=== PATIENT | female | born 2005 | race Caucasian/White ===

== ENCOUNTER 2023-07-07 15:33 | Outpatient (AMB) | payer OTHER, SELFPAY ==
--- NOTE | 2023-07-07 15:46 | MHC.PC.OV ---
Vital Signs 07/07/23 15:50 Height 5 ft 5.39 in Weight 205 lb 4 oz BMI 33.7 BP 123/81 Blood Pressure Location Rt brachial Position Sitting Respiration 16 Pulse 79 Pulse Source Pulse Oximeter Temp 97.9 F Temp Source Temporal Artery Scan Pulse Oximetry (%) 98 Oxygen Delivery Method Room Air Intake Visit Reasons: louie from pediatrics Intake Note: New patient visit Shuttle Fixer Required: No Is last menstrual period known: Yes Last menstrual period: 07/06/23 Patient : No Allergies Seasonal Allergies Allergy (Intermediate, Verified 07/07/23 16:00) Sneezing, watery eye Medication List - Last Reconciled 07/07/23 by PAZ Maravilla-BC albuterol sulfate 90 mcg/actuation 2 puffs inhalation Q6H PRN Tobacco use date assessed: 07/07/23 Dental Screening Dental Screen Date: 07/07/23 Did you have a dental visit in the last 12 months?: No Did you have a dental problem in the last 6 months where you did not have access to dental care?: No Was dental information given to patient?: Patient has dentist HPI HPI Comments History of Present Illness Details 17-year-old female with HS, elevated fasting glucose, MDD, LAURIE, mild intermittent asthma Surgical hx: none Specialist: Counselor - no longer active, needs new referral Here today for CPE HS - getting some, more in vaginal area. Only occasionally in the axilla. MDD/LAURIE - was on meds in the past, stopped as didnt think she needed any more Asthma - PRN RUBEN Will be started a SIGN OUT CLERK program at [facility] [place] Starts Aug 09 2023 Needs titers drawn Reports normal periods. Sexually active with women. Denies concern for STDs. Reports self-breast exams. [facility] Medical History (Updated 07/07/23 @ 17:05 by PAZ Maravilla-JUANJO) Hidradenitis axillaris Diarrhea Surgical History No pertinent past surgical history Family History (Updated 07/07/23 @ 15:55 by Maria M Carrillo CMA) Mother Diabetes Father No problems noted. Maternal Grandmother Diabetes Paternal Uncle Substance abuse Other Mental disorder Social History Household Members: Family Housing: Apartment Patient Tobacco Use Status: Never used Tobacco e-Cigarette/Vaping Use: Former Use service: No Current occupational status: employed and student Current occupation: [employer] Current occupational exposures/hazards: No Cognitive needs: No Hearing needs: No Vision needs: No Female Reproductive History Menstrual Date of last menstrual period: 07/06/23 Questionnaire PHQ-9 Over the last 2 weeks, how often have you been bothered by any of the following problems? 1. Little interest or pleasure in doing things: not at all 2. Feeling down, depressed, or hopeless: several days 3. Trouble falling or staying asleep, or sleeping too much: not at all 4. Feeling tired or having little energy: several days 5. Poor appetite or overeating: not at all 6. Feeling bad about yourself - or that you are a failure or have let yourself or your family down: several days 7. Trouble concentrating on things, such as reading the newspaper or watching television: not at all 8. Moving or speaking so slowly that other people could have noticed. Or the opposite - being so fidgety or restless that you have been moving around a lot more than usual: not at all 9. Thoughts that you would be better off or of hurting yourself in some way: not at all Total score: 3 Depression Screening Interpretation: Positive Depression Screening Follow-up: Existing condition and Community Mental Health Worker F/U Depression Screening Done: Yes 98935 - PHQ-9 Billing: Yes Source: Developed by Drs. Daniel Mcconnell, Pascale Gómez, James Cheatham and colleagues, with an educational moody from [email or web address] Thrive Questionnaire Date Thrive assessed: 07/07/23 I am a: Patient What is your living situation today?: I have a steady place to live Within the past 12 months, did the food you bought not last and you didn't have the money to get more?: Never true Within the past 12 months, did you worry whether your food would run out before you got money to buy more?: Never true Do you have trouble paying for medicines?: No Do you have trouble getting transportation to medical appointments?: No Do you have trouble paying your heating and electricity bill?: No Do you have trouble taking care of your child, family member or friend?: No Do you have trouble with day-to-day activities such as bathing, preparing meals, shopping, managing finances, etc.?: No Are you currently unemployed and looking for a job?: No Are you interested in more education?: No Please select the resources that you would like help with: None Currently or been in a relationship where the following occur: no concerns reported THRIVE Score: 0 AUDIT C Alcohol Use Questionnaire (AUDIT-C) 1. How often do you have a drink containing alcohol?: Never 3. How often do you have six or more drinks on one occasion?: Never Total Score: 0 Score Reviewed/Action Taken: Yes LAURIE-7 AMB Questionnaire LAURIE-7 Date LAURIE - 7 assessed: 07/07/23 Feeling nervous, anxious, or on edge: 1 = Several days Not being able to stop or control worryin = Not at all Worrying too much about different things: 0 = Not at all Trouble relaxin = Not at all Being so restless that it is hard to sit still: 0 = Not at all Becoming easily annoyed or irritable: 1 = Several days Feeling afraid as if something awful might happen: 0 = Not at all Total LAURIE-7 score (0-4 normal; 5-9 mild; 10-14 moderate; 15-21 severe): 2 Source: Developed by Drs. Daniel Mcconnell, Pascale Gómez, James Cheatham and colleagues, with an educational moody from [email or web address]. LAURIE-7 Assessment Billing LAURIE-7 Assessment Tool: LAURIE-7 Assessment 99272 ACT Questionnaire In the past 4 weeks, how much of the time did your asthma keep you from getting as much done at work, school or at home?: None of the time During the past 4 weeks, how often have you had shortness of breath?: 1-2 times a week During the past 4 weeks, how often did your asthma symptoms wake you up at night or earlier than usual in the morning?: Not at all During the past 4 weeks, how often have you had to use your rescue inhaler or nebulizer medication?: 1-2 times a week How would you rate your asthma control during the past 4 weeks?: Completely controlled ACT Interpretation: Positive Score: 21 Review of Systems Const Details: Constitutional: Denies fever. Skin: Denies rash. Eye: Denies eye pain. ENMT: Denies sore throat and nasal congestion. Respiratory: Denies shortness of breath and cough. Gastrointestinal: Denies nausea, vomiting or abdominal pain. Cardiovascular: Denies chest pain and syncope. Genitourinary: Denies dysuria. Musculoskeletal: Denies back pain and extremity pain. Neurologic: Denies headaches, confusion, and weakness. Psychiatric: Denies suicidal thoughts and substance abuse. Allergy/ Immunologic: Denies impaired immunity. Physical exam (Primary Care) Vital Signs: Last Vital Signs Temp 97.9 F 07/07/23 15:50 Pulse 9 L 07/07/23 15:50 Resp 16 07/07/23 15:50 BP 123/81 07/07/23 15:50 Pulse Ox 98 07/07/23 15:50 Oxygen Delivery Method Room Air 07/07/23 15:50 BMI result Body Mass Index 33.7 BMI Assessment/Plan discussion: High BMI High, discussed plan: lifestyle Tobacco/Smoking Status: Tobacco use Status Tobacco use date assessed 07/07/23 07/07/23 15:50 Patient Tobacco Use Status Never used Tobacco 07/07/23 15:50 e-Cigarette/Vaping Use Former Use 07/07/23 15:50 PHQ-9: PHQ-9 Score PHQ-9: Total score 3 07/07/23 15:57 Depression Screening Interpretation: Positive Depression Screening Follow-up: Existing condition and Community Mental Health Worker F/U Thrive Assessment: Date of Thrive Assessment Date Thrive assessed 07/07/23 07/07/23 15:57 Currently or been in a relationship where the following occur: no concerns reported Const Other: General: Well developed, well nourished, in no acute distress. Appears stated age. Head: Normocephalic, atraumatic. Eyes: Pupils are equal, round and reactive to light and accommodation. Conjunctivae are clear. Vision grossly normal. Ears: TMs clear AU, EACS WNL Nose: Patent, without discharge. Mouth: There are no ulcers or lesions noted. No inflammation, no post nasal drip, no plaques nor exudates. Neck: Supple, no adenopathy or thyromegaly. Lungs: Clear to auscultation bilaterally. No rales, rhonchi or wheeze noted. Good air flow in all watson. Heart: Regular rate and rhythm. No murmurs, click, rubs or gallops are noted. Abdomen: Bowel sounds present in all quadrants. The abdomen is soft, nontender, with no masses or organomegaly noted. No hernias are noted. Musculoskeletal: Joints are nontender, without swelling, redness, or effusions. Range of motion is observed to be normal. Pulses: Peripheral pulses are equal and palpable bilaterally. Extremities: No clubbing, cyanosis nor edema is noted. Neurologic: Gait and station normal. Cranial Nerves 2-12 intact. Motor strength grossly symmetrical and intact. No sensory loss. Balance normal. Skin: No rashes, ulcers, or lesions noted. Turgor is good. Skin color is good. Hair and nails are without abnormalities. Psych: Normal eye contact, affect and mood appropriate, and normal interactions. Patient is alert and appropriate to context. Assessment and Plan Assessment & Plan (1) Adult general medical exam: Code(s): Z00.00 - Encounter for general adult medical examination without abnormal findings (2) MDD (major depressive disorder), recurrent episode: Comment: On medications in the past. Feels her symptoms are well controlled. Referred to counseling. Code(s): F33.9 - Major depressive disorder, recurrent, unspecified Qualifiers: Major depression episode severity: mild Qualified Code(s): F33.0 - Major depressive disorder, recurrent, mild (3) LAURIE (generalized anxiety disorder): Comment: See MDD Code(s): F41.1 - Generalized anxiety disorder (4) Nearsightedness: Comment: Refer to ophthalmology Code(s): H52.10 - Myopia, unspecified eye (5) Class 1 obesity with body mass index (BMI) of 33.0 to 33.9 in adult: Comment: Lifestyle mods encouraged Code(s): E66.9 - Obesity, unspecified; Z68.33 - Body mass index [BMI] 33.0-33.9, adult Qualifiers: Obesity type: due to excess calories Serious obesity comorbidity presence: without serious comorbidity Qualified Code(s): E66.09 - Other obesity due to excess calories; Z68.33 - Body mass index [BMI] 33.0-33.9, adult (6) Hidradenitis suppurativa: Comment: With history of abscess requiring I&D in August of 2020 We will prescribe Hibiclens to be used daily in the shower. Offered and declined a referral to dermatology at this time. She has no concerns for abscesses. Code(s): L73.2 - Hidradenitis suppurativa (7) Mild intermittent asthma in adult without complication: Comment: Well controlled with sparing use of p.r.n. Ruben. Continue Code(s): J45.20 - Mild intermittent asthma, uncomplicated (8) IFG (impaired fasting glucose): Comment: Noted on previous labs. We will update labs to include an HGB A1c. Code(s): R73.01 - Impaired fasting glucose Plan: Titers ordered for her. She has sent me her school paperwork via the portal. Once all of her labs are back I will complete the paperwork and returned this to her. Orders: Orders LDL Cholesterol Direct Today Z00.00 - Encounter for general adult medical examination without abnormal findings Hemoglobin A1c Today Z00.00 - Encounter for general adult medical examination without abnormal findings TSH reflex Free T4 Today Z00.00 - Encounter for general adult medical examination without abnormal findings T Spot TB Today Z00.00 - Encounter for general adult medical examination without abnormal findings Varicella IgG Antibody Today Z00.00 - Encounter for general adult medical examination without abnormal findings MMR IgG Measles Mumps Rubella Today Z00.00 - Encounter for general adult medical examination without abnormal findings Hepatitis B Surface Antigen Today Z00.00 - Encounter for general adult medical examination without abnormal findings Comprehensive Met. Panel Today Z00.00 - Encounter for general adult medical examination without abnormal findings Vitamin D 1,25 dihydroxy Today Z00.00 - Encounter for general adult medical examination without abnormal findings Referrals Counseling Referral F33.9 - Major depressive disorder, recurrent, unspecified, F41.1 - Generalized anxiety disorder Ophthalmology Referral H52.10 - Myopia, unspecified eye Medications: New chlorhexidine gluconate 4% (Hibiclens) wash body daily 1 appl topical DAILY 30 days 3,800 mL 3RF Patient Instructions: Return to office in 1 year for CPE sooner as needed. Health screenings for women ages 18 to 39 You should visit your health care provider from time to time, even if you are healthy. The purpose of these visits is to: Screen for medical issues Assess your risk for future medical problems Encourage a healthy lifestyle Update vaccinations and other preventive care services Help you get to know your provider in case of an illness Information Even if you feel fine, you should still see your provider for regular checkups. These visits can help you avoid problems in the future. For example, the only way to find out if you have high blood pressure is to have it checked regularly. High blood sugar and high cholesterol levels also may not have any symptoms in the early stages. A simple blood test can check for these conditions. There are specific times when you should see your provider or receive specific health screenings. The [place] Preventive Services Task Force publishes a list of recommended screenings. Below are screening guidelines for women ages 18 to 39. BLOOD PRESSURE SCREENING Your blood pressure should be checked at least once every 3 to 5 years if: Your blood pressure is in the normal range (top number less than 120 mm Hg and bottom number less than 80 mm Hg) You don't have risk factors for high blood pressure Ask your provider if you need your blood pressure checked more often if: The top number is 120 to 129 mm Hg or the bottom number is 70 to 79 mm Hg You have diabetes, heart disease, kidney problems, are overweight, or have certain other health conditions You have a first-degree relative with high blood pressure You are Black You had high blood pressure during a If the top number is 130 mm Hg or greater or the bottom number is 80 mm Hg or greater, this is considered stage 1 hypertension. Schedule an appointment with your provider to learn how you can reduce your blood pressure. Watch for blood pressure screenings in your area. Ask your provider if you can stop in to have your blood pressure checked. BREAST CANCER SCREENING Experts do not agree about the benefits of breast self-exams in finding breast cancer or saving lives. Talk to your provider about what is best for you. A screening mammogram is not recommended for most women under age 40. Your provider may discuss and recommend mammograms, MRI scans, or ultrasounds if you have an increased risk for breast cancer, such as: A mother or sister who had breast cancer at a young age (most often starting screening earlier than the age the close relative was diagnosed) You carry a high-risk genetic marker CERVICAL CANCER SCREENING Cervical cancer screening should start at age 21 years unless your provider advises otherwise. After the first test: Women ages 21 through 29 should have a Pap test every 3 years. Exoprts do not agree on whether HPV testing is recommended for this age group. Women ages 30 through 65 should be screened with either a Pap test every 3 years or the HPV test every 5 years or both tests every 5 years (called cotesting ). Women who have been treated for precancer (cervical dysplasia) should continue to have Pap tests for 20 years after treatment or until age 65, whichever is longer. If you have had your uterus and cervix removed (total hysterectomy), and you have not been diagnosed with cervical cancer or precancer (high grade cervical neoplasia), you do not need cervical cancer screening. CHOLESTEROL SCREENING Cholesterol screening should begin at: Age 45 for women with no known risk factors for coronary heart disease Age 20 for women with known risk factors for coronary heart disease Repeat cholesterol screening should take place: Every 5 years for women with normal cholesterol levels More often if changes occur in lifestyle (including weight gain and diet) More often if you have diabetes, heart disease, kidney problems, or certain other conditions DIABETES SCREENING You should be screened for diabetes starting at age 35 and then repeated every 3 years if you have no risk factors for diabetes. Screening may need to start earlier and be repeated more often if you have other risk factors for diabetes, such as: You have a first degree relative with diabetes. You are overweight or have obesity. You have high blood pressure, prediabetes, or a history of heart disease. Screening for diabetes should be done if you are planning to become and you are overweight and have other risk factors such as high blood pressure. DENTAL EXAM Go to the dentist once or twice every year for an exam and cleaning. Your dentist will evaluate if you need more frequent visits. EYE EXAM Have an eye exam every 5 to 10 years before age 40. If you have vision problems, have an eye exam every 2 years or more often if recommended by your provider. You should have an eye exam that includes an examination of your retina (back of your eye) at least every year if you have diabetes. IMMUNIZATIONS Commonly needed vaccines include: Flu shot: get one every year. COVID-19 vaccine: ask your provider what is best for you. Tetanus-diphtheria and acellular pertussis (Tdap) vaccine: have one at or after age 19 as one of your tetanus-diphtheria vaccines if you did not receive it as an adolescent. Tetanus-diphtheria: have a booster (or Tdap) every 10 years. Varicella vaccine: receive 2 doses if you never had chickenpox or the varicella vaccine. Hepatitis B vaccine: receive 2, 3, or 4 doses, depending on your exact circumstances. Measles, mumps, and rubella (MMR) vaccine: receive 1 to 2 doses if you are not already immune to MMR. Your provider can tell you if you are immune. Ask your provider about the human papillomavirus (HPV) vaccine if: You have not received the HPV vaccine in the past You have not completed the full vaccine series (you should catch up on this shot) Ask your provider if you should receive other immunizations if you have certain health problems that increase your risk for some diseases such as pneumonia. INFECTIOUS DISEASE SCREENING Women who are sexually active should be screened for chlamydia and gonorrhea up until age 25. Women 25 years and older should be screened for chlamydia and gonorrhea if at high risk. Screening for hepatitis C: All adults ages 18 to 79 should get a one-time test for hepatitis C. people should be screened at every . Screening for human immunodeficiency virus (HIV): All people ages 15 to 65 should get a one-time test for HIV. Depending on your lifestyle and medical history, you may also need to be screened for infections such as syphilis and HIV, as well as other infections. PHYSICAL EXAM All adults should visit their provider from time to time, even if they are healthy. The purpose of these visits is to: Screen for disease Assess your risk of future medical problems Encourage a healthy lifestyle Update your vaccinations and other preventive care services Maintain a relationship with a provider in case of an illness Your height, weight, and BMI should be checked at every exam. During your exam, your provider may ask you about: Depression and anxiety Diet and exercise Alcohol and tobacco use Safety issues, such as using seat belts, smoke detectors, and intimate partner violence Your medicines and risk for interactions SKIN SELF-EXAM Your provider may check your skin for signs of skin cancer, especially if you're at high risk, such as if you: Have had skin cancer before Have close relatives with skin cancer Have a weakened immune system OTHER SCREENING Talk with your provider about colon cancer screening if you have a strong family history of colon cancer or polyps, or if you have had inflammatory bowel disease or polyps yourself. Routine bone density screening of women under 40 is not recommended. Coding Level of Care Code Est Pt Prev Care 18-39y(97592) Diagnoses Adult general medical exam Z00.00 Mild episode of recurrent major depressive disorder F33.0 Major depression episode severity: mild LAURIE (generalized anxiety disorder) F41.1 Nearsightedness H52.10 Class 1 obesity due to excess calories without serious comorbidity with body mass index (BMI) of 33.0 to 33.9 in adult E66.09; Z68.33 Obesity type: due to excess calories Serious obesity comorbidity presence: without serious comorbidity Hidradenitis suppurativa L73.2 Mild intermittent asthma in adult without complication J45.20 IFG (impaired fasting glucose) R73.01 Additional Codes LAURIE-7 Assessment Billing - LAURIE-7 Assessment Tool: LAURIE-7 Assessment [id number] ([id number])
[2023-07-07 15:50] VITALS: BP 123/81; PULSE 79; RESP 16; TEMP 36.6; O2SAT 98; BMI 33.7
== END 2023-07-07 16:21 | disposition home or self-care (01) ==
PROVIDERS: Visit Provider Nurse Practitioner Family
DX: Z00.00 Encounter for general adult medical examination without abnormal findings (principal); F33.0 Major depressive disorder, recurrent, mild; F41.1 Generalized anxiety disorder; H52.10 Myopia, unspecified eye; E66.09 Other obesity due to excess calories; Z68.33 Body mass index [BMI] 33.0-33.9, adult; L73.2 Hidradenitis suppurativa; J45.20 Mild intermittent asthma, uncomplicated; R73.01 Impaired fasting glucose
CPT/HCPCS: 99395

== ENCOUNTER 2023-07-12 12:48 | Outpatient (REF) | payer OTHER, SELFPAY ==
[2023-07-12 15:50] LABS: Estimated Average Glucose 88 mg/dL; Hemoglobin A1c % 4.7 % (<6.0)
[2023-07-12 15:55] LABS: Alanine Aminotransferase 15 U/L (0-31); Albumin Level 4.5 g/dL (3.5-5.0); Alkaline Phosphatase 77 U/L (39-117); Anion Gap 11 (12-20); Aspartate Amino Transferase 12 U/L (5-31); Bilirubin Total 0.2 mg/dL (0.0-1.0); Blood Urea Nitrogen 10 mg/dL (9-16); Calcium 9.2 mg/dL (8.4-10.2); Carbon Dioxide 25 mmol/L (22-29); Chloride 106 mmol/L (96-108); Estimated Glomerular Filt Rate > 60; Glucose Random 98 mg/dL (60-115); Potassium 3.9 mmol/L (3.3-5.1); Sodium 138 mmol/L (135-145); Total Protein 7.3 g/dL (6.5-8.0)
[2023-07-13 08:12] LABS: HBsAGNum1 0.36 S/CO (0.00-0.99); Hepatitis B Surface Antigen Negative (Negative)
[2023-07-13 10:37] LABS: Rubella IgG Antibody 2.09 Index
[2023-07-13 11:23] LABS: LDL Cholesterol Direct 57 mg/dL (<110)
[2023-07-13 13:05] LABS: HBS Num1 4.13 mIU/mL (0-7.99); ~Hepatitis B Surface Antibody NONREACTIVE (Nonreactive)
[2023-07-14 23:29] LABS: TS Negative Control Passed; TS Panel A 0; TS Panel B 0; TS Positive Control Passed; TSpotTB Negative (Negative)
[2023-07-16 05:29] LABS: VITAMIN D (1,25 OH) D3 36 pg/mL; Vit D (1,25-Dihydroxy) Total 36 pg/mL (18-72); Vitamin D (1,25 OH) D2 <8 pg/mL
== END 2023-07-12 12:49 | disposition home or self-care (01) ==
LOC: HO.WFDLDS 12:48
PROVIDERS: Visit Provider Nurse Practitioner Family
DX: Z00.00 Encounter for general adult medical examination without abnormal findings (principal)
CPT/HCPCS: 36415; 80053; 82652; 83036; 83721; 84443; 86481; 86706; 86735; 86762; 86765; 86787; 87340

== ENCOUNTER 2023-07-13 12:29 | Outpatient (REF) | payer OTHER, SELFPAY | END 2023-07-13 12:30 | disposition home or self-care (01) | LOC: HO.LAB 12:29 | PROVIDERS: Visit Provider Nurse Practitioner Family | DX: Z13.89 Encounter for screening for other disorder (principal) ==

== ENCOUNTER 2023-09-13 11:36 | Outpatient (REF) | payer OTHER, SELFPAY ==
[2023-09-18 21:53] LABS: TS Negative Control Passed; TS Panel A 0; TS Panel B 0; TS Positive Control Passed; TSpotTB Negative (Negative)
== END 2023-09-13 11:37 | disposition home or self-care (01) ==
LOC: HO.HMGCLDS 11:36
PROVIDERS: PCP Nurse Practitioner Family; Visit Provider Nurse Practitioner Family
DX: Z11.1 Encounter for screening for respiratory tuberculosis (principal)
CPT/HCPCS: 36415; 86481

== ENCOUNTER 2024-07-22 11:53 | Outpatient (AMB) | payer OTHER, SELFPAY ==
--- NOTE | 2024-07-22 12:00 | MHC.PC.OV ---
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 Required: No Allergies Seasonal Allergies Allergy (Intermediate, Verified 07/22/24 12:13) Sneezing, watery eye Medication List - Last Reconciled 07/22/24 by CHINO MaravillaP- albuterol sulfate 90 mcg/actuation 2 puffs inhalation Q6H PRN chlorhexidine gluconate 4% (Hibiclens) 1 appl topical DAILY 30 days Tobacco use date assessed: 07/22/24 Dental Screening Dental Screen Date: 07/22/24 Did you have a dental visit in the last 12 months?: Yes Did you have a dental problem in the last 6 months where you did not have access to dental care?: No Was dental information given to patient?: Patient has dentist HPI HPI Comments History of Present Illness Details 18-year-old female with HS, elevated fasting glucose, MDD, LAURIE, mild intermittent asthma Surgical hx: none Family hx: MGM dementia 73; no other changes 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 Optho - last exam in the past year, wears glasses now. - The patient is a 18-year-old female presenting with a wellness exam and management of hidradenitis suppurativa. - Hidradenitis Suppurativa (HS): She reports continued cystic flares primarily on her legs, with resolution in the armpits. She uses Hibiclens which has helped, but the issue persists - Asthma: She successfully manages her asthma with albuterol and reports no recent exacerbations. - Elevated Fasting Glucose: Previously noted in her medical history, normal A1c. + Wt loss. MDD/LAURIE: Mood is stable. Needs new referral for counseling; bad fit at [facility]. Not on meds. Reports normal periods. Sexually active with women. Denies concern for STDs. Reports self-breast exams. ROS - Skin: Reports persistent cysts on legs, denies new ones in armpits. - Respiratory: Denies any recent asthma exacerbations. - Gastrointestinal: Denies issues with bowel movements or urination. - Neurological: Denies changes in mood or heightened anxiety, although past counseling was discussed. Results: Labs from 07/12/2023 show a normal CMP, normal TSH, direct LDL 57, hep B surface antibody is nonreactive, positive titers for mumps, rubella, rubeola, varicella TB spot, vitamin-D normal Discussion During the visit, I reviewed the patient's current health status and addressed the management of her ongoing hidradenitis suppurativa with an option to start doxycycline, a low-dose antibiotic. I explained that while this medication could reduce cysts, effectiveness varies among patients, and she should monitor her response. Sunscreen use while on doxycycline was advised due to potential photosensitivity. I also discussed updating her vaccinations, specifically the Tdap and flu shots, which she agreed to receive during the visit. For her elevated fasting glucose, discussed last visit, current management strategies and monitoring will continue unless new symptoms arise. Considering past negative counseling experiences at [facility], I arranged an external referral for better mental health support. Lastly, I explored the option of scheduling a Pap smear with an OBGYN as she approaches the age for regular screening A&P 1. Hidradenitis Suppurativa (HS) Trial of oral doxycycline as a low-dose antibiotic is initiated to manage cystic lesions. Photosensitivity noted, recommending sunscreen use. If note effective, refer to Derm. 2. Asthma The patient will continue using albuterol as needed, reporting no recent exacerbations or control issues; current treatment shows effective management. Flu and Tdap today. 3. Elevated Fasting Glucose Continuation of current management approaches with monitoring; no immediate interventions required at this time. 4. Preventative Health and Vaccinations Administration of due Tdap and flu vaccines as scheduled today. Referral to OBGYN for initial Pap smear planning acknowledged, aiming for timely preventive health alignment. Patient Instructions - Begin taking the prescribed doxycycline once daily. - Use sunscreen whenever spending time outdoors. - Receive the Tdap and flu vaccines today as planned. - Reach out via the health portal if symptoms of the skin condition persist or worsen. - Continue using albuterol as needed for asthma management. - Follow up with counseling referrals outside of [facility] as scheduled. - Schedule your Pap smear as advised. - RTO 1 year CPE sooner PRN Patient was informed and verbally consented to the use of an ambient scribe for clinic note documentation during this visit. [facility] Medical History Hidradenitis axillaris Diarrhea Surgical History No pertinent past surgical history Family History Mother Diabetes Father No problems noted. Maternal Grandmother Diabetes Paternal Uncle Substance abuse Other Mental disorder Social History Household Members: Family Housing: Apartment Patient Tobacco Use Status: Never used Tobacco e-Cigarette/Vaping Use: Former Use service: No Current occupational status: employed and student Current occupation: [employer] Current occupational exposures/hazards: No Cognitive needs: No Hearing needs: No Vision needs: No Questionnaire PHQ-9 Over the last 2 weeks, how often have you been bothered by any of the following problems? 1. Little interest or pleasure in doing things: not at all 2. Feeling down, depressed, or hopeless: not at all 3. Trouble falling or staying asleep, or sleeping too much: not at all 4. Feeling tired or having little energy: not at all 5. Poor appetite or overeating: not at all 6. Feeling bad about yourself - or that you are a failure or have let yourself or your family down: not at all 7. Trouble concentrating on things, such as reading the newspaper or watching television: not at all 8. Moving or speaking so slowly that other people could have noticed. Or the opposite - being so fidgety or restless that you have been moving around a lot more than usual: not at all 9. Thoughts that you would be better off or of hurting yourself in some way: not at all Total score: 0 Depression Screening Interpretation: Negative Depression Screening Done: Yes 09161 - PHQ-9 Billing: Yes Source: Developed by Drs. Daniel Mcconnell, Pascale Gómez, James Cheatham and colleagues, with an educational moody from [employer]. Thrive Questionnaire Date Thrive assessed: 07/22/24 I am a: Patient What is your living situation today?: I have a steady place to live Within the past 12 months, did the food you bought not last and you didn't have the money to get more?: Never true Within the past 12 months, did you worry whether your food would run out before you got money to buy more?: Never true Do you have trouble paying for medicines?: No Do you have trouble getting transportation to medical appointments?: No Do you have trouble paying your heating and electricity bill?: No Do you have trouble taking care of your child, family member or friend?: No Do you have trouble with day-to-day activities such as bathing, preparing meals, shopping, managing finances, etc.?: No Are you currently unemployed and looking for a job?: No Are you interested in more education?: Yes Please select the resources that you would like help with: None Currently or been in a relationship where the following occur: No concerns reported THRIVE Score: 0 AUDIT C Alcohol Use Questionnaire (AUDIT-C) 1. How often do you have a drink containing alcohol?: Never 3. How often do you have six or more drinks on one occasion?: Never Total Score: 0 Score Reviewed/Action Taken: Yes LAURIE-7 AMB Questionnaire LAURIE-7 Date LAURIE - 7 assessed: 07/22/24 Feeling nervous, anxious, or on edge: 0 = Not at all Not being able to stop or control worryin = Not at all Worrying too much about different things: 1 = Several days Trouble relaxin = Not at all Being so restless that it is hard to sit still: 1 = Several days Becoming easily annoyed or irritable: 1 = Several days Feeling afraid as if something awful might happen: 0 = Not at all Total LAURIE-7 score (0-4 normal; 5-9 mild; 10-14 moderate; 15-21 severe): 3 Source: Developed by Drs. Daniel Mcconnell, Pascale Gómez, James Cheatham and colleagues, with an educational moody from [employer]. LAURIE-7 Assessment Billing LAURIE-7 Assessment Tool: LAURIE-7 Assessment 69977 Physical exam (Primary Care) Vital Signs: Last Vital Signs Temp 97.5 F 07/22/24 12:03 Pulse 97 07/22/24 12:03 Resp 12 07/22/24 12:03 BP 118/68 07/22/24 12:03 Pulse Ox 99 07/22/24 12:03 Oxygen Delivery Method Room Air 07/22/24 12:03 BMI result Body Mass Index 32.8 BMI Assessment/Plan discussion: High BMI High, discussed plan: lifestyle Tobacco/Smoking Status: Tobacco use Status Tobacco use date assessed 07/22/24 07/22/24 12:04 Patient Tobacco Use Status Never used Tobacco 07/22/24 12:04 e-Cigarette/Vaping Use Former Use 07/22/24 12:04 PHQ-9: PHQ-9 Score PHQ-9: Total score 0 07/22/24 12:56 Depression Screening Interpretation: Negative Thrive Assessment: Date of Thrive Assessment Date Thrive assessed 07/22/24 07/22/24 12:04 Currently or been in a relationship where the following occur: No concerns reported Const Other: General: Well developed, well nourished, in no acute distress. Appears stated age. Head: Normocephalic, atraumatic. Eyes: Pupils are equal, round and reactive to light and accommodation. Conjunctivae are clear. Vision grossly normal. Ears: TMs clear AU, EACS WNL Nose: Patent, without discharge. Mouth: There are no ulcers or lesions noted. No inflammation, no post nasal drip, no plaques nor exudates. Neck: Supple, no adenopathy or thyromegaly. Lungs: Clear to auscultation bilaterally. No rales, rhonchi or wheeze noted. Good air flow in all watson. Heart: Regular rate and rhythm. No murmurs, click, rubs or gallops are noted. Abdomen: Bowel sounds present in all quadrants. The abdomen is soft, nontender, with no masses or organomegaly noted. No hernias are noted. Musculoskeletal: Joints are nontender, without swelling, redness, or effusions. Range of motion is observed to be normal. Pulses: Peripheral pulses are equal and palpable bilaterally. Extremities: No clubbing, cyanosis nor edema is noted. Neurologic: Gait and station normal. Cranial Nerves 2-12 intact. Motor strength grossly symmetrical and intact. No sensory loss. Balance normal. Skin: No rashes, ulcers, or lesions noted. Turgor is good. Skin color is good. Hair and nails are without abnormalities. Psych: Normal eye contact, affect and mood appropriate, and normal interactions. Patient is alert and appropriate to context. Office Procedures Flu Questionnaire Does the patient have a severe egg allergy?: No Does the patient have severe life threatening allergies?: No Does the patient have a fever or illness today?: No Has the patient ever had Guillain-Houston Syndrome?: No Has the patient ever had any past reaction to a flu shot?: No Immunizations Fluarix Triv [id number] (PF) 45 mcg (15 mcg x 3)/0.5 mL IM syringe Performing Provider: KATHERINE Maravilla Performing Location: [facility] Administered by: Anjali Bee RN on 07/22/24 12:54 Dose Route Admin Location Dispensed Lot Number Expiration Date ND Ssrs Report Developer 0.5 mL IM Right Deltoid 0.5 mL [id number] 09/23/24 [id number] [id number] VIS Given Date VIS Provided VIS Publication Date 07/22/24 Single Vaccine 20 Eligibility Eligibility Date Funding Source Not VFC Eligible 07/22/24 Private Boostrix Tdap 2.5 Lf unit-8 mcg-5 Lf/0.5 mL intramuscular syringe Performing Provider: KATHERINE Maravilla Performing Location: [facility] Administered by: Anjali Bee RN on 07/22/24 12:54 Dose Route Admin Location Dispensed Lot Number Expiration Date NDC Ssrs Report Developer 0.5 mL IM Right Deltoid 0.5 mL [id number] 04/05/26 [id number] [id number] VIS Given Date VIS Provided VIS Publication Date 07/22/24 Single Vaccine 20 Eligibility Eligibility Date Funding Source Not VFC Eligible 07/22/24 Private Coding Level of Care Code Est Pt Prev Care [id number]([id number]) Diagnoses Adult general medical exam Z00.00 LAURIE (generalized anxiety disorder) F41.1 Hidradenitis suppurativa L73.2 IFG (impaired fasting glucose) R73.01 Mild episode of recurrent major depressive disorder F33.0 Major depression episode severity: mild Mild intermittent asthma in adult without complication J45.20 Obesity (BMI 30-39.9) E66.9 Influenza vaccination administered at current visit Z23 Need for Tdap vaccination Z23 Additional Codes LAURIE-7 Assessment Billing - LAURIE-7 Assessment Tool: LAURIE-7 Assessment 31863 ([id number]) PHQ-9 - 14880 - PHQ-9 Billing: Yes ([id number]) Assessment & Plan Assessment & Plan (1) Adult general medical exam: Onset Date: ~06/2024 Code(s): Z00.00 - Encounter for general adult medical examination without abnormal findings Category: Medical (2) LAURIE (generalized anxiety disorder): Comment: See MDD Code(s): F41.1 - Generalized anxiety disorder Category: Medical (3) Hidradenitis suppurativa: Comment: With history of abscess requiring I&D in August of 2020 Cont Hibiclens to be used daily in the shower. Start doxy 50mg QD Consider derm Code(s): L73.2 - Hidradenitis suppurativa Category: Medical (4) IFG (impaired fasting glucose): Comment: normal a1c 2023 Code(s): R73.01 - Impaired fasting glucose Category: Medical (5) MDD (major depressive disorder), recurrent episode: Comment: On medications in the past. Feels her symptoms are well controlled. Referred to counseling. Code(s): F33.9 - Major depressive disorder, recurrent, unspecified Category: Medical Qualifiers: Major depression episode severity: mild Qualified Code(s): F33.0 - Major depressive disorder, recurrent, mild (6) Mild intermittent asthma in adult without complication: Comment: Well controlled with sparing use of p.r.n. Renea. Continue Code(s): J45.20 - Mild intermittent asthma, uncomplicated Category: Medical (7) Obesity (BMI 30-39.9): Comment: life style mods Code(s): E66.9 - Obesity, unspecified Category: Medical (8) Influenza vaccination administered at current visit: Code(s): Z23 - Encounter for immunization (9) Need for Tdap vaccination: Code(s): Z23 - Encounter for immunization Plan . 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 - Use sunscreen whenever spending time outdoors. - Receive the Tdap and flu vaccines today as planned. - Reach out via the health portal if symptoms of the skin condition persist or worsen. - Continue using albuterol as needed for asthma management. - Follow up with counseling referrals outside of [facility] as scheduled. - Schedule your Pap smear as advised. Health screenings for women You should visit your health care provider from time to time, even if you are healthy. The purpose of these visits is to: Screen for medical issues Assess your risk for future medical problems Encourage a healthy lifestyle Update vaccinations and other preventive care services Help you get to know your provider in case of an illness Information Even if you feel fine, you should still see your provider for regular checkups. These visits can help you avoid problems in the future. For example, the only way to find out if you have high blood pressure is to have it checked regularly. High blood sugar and high cholesterol levels also may not have any symptoms in the early stages. A simple blood test can check for these conditions. There are specific times when you should see your provider or receive specific health screenings. The [place] Preventive Services Task Force publishes a list of recommended screenings. Below are screening guidelines for women ages 18 to 39. BLOOD PRESSURE SCREENING Your blood pressure should be checked at least once every 3 to 5 years if: Your blood pressure is in the normal range (top number less than 120 mm Hg and bottom number less than 80 mm Hg) You don't have risk factors for high blood pressure Ask your provider if you need your blood pressure checked more often if: The top number is 120 to 129 mm Hg or the bottom number is 70 to 79 mm Hg You have diabetes, heart disease, kidney problems, are overweight, or have certain other health conditions You have a first-degree relative with high blood pressure You are Black You had high blood pressure during a If the top number is 130 mm Hg or greater or the bottom number is 80 mm Hg or greater, this is considered stage 1 hypertension. Schedule an appointment with your provider to learn how you can reduce your blood pressure. Watch for blood pressure screenings in your area. Ask your provider if you can stop in to have your blood pressure checked. BREAST CANCER SCREENING Experts do not agree about the benefits of breast self-exams in finding breast cancer or saving lives. Talk to your provider about what is best for you. A screening mammogram is not recommended for most women under age 40. Your provider may discuss and recommend mammograms, MRI scans, or ultrasounds if you have an increased risk for breast cancer, such as: A mother or sister who had breast cancer at a young age (most often starting screening earlier than the age the close relative was diagnosed) You carry a high-risk genetic marker CERVICAL CANCER SCREENING Cervical cancer screening should start at age 21 years unless your provider advises otherwise. After the first test: Women ages 21 through 29 should have a Pap test every 3 years. Exoprts do not agree on whether HPV testing is recommended for this age group. Women ages 30 through 65 should be screened with either a Pap test every 3 years or the HPV test every 5 years or both tests every 5 years (called cotesting ). Women who have been treated for precancer (cervical dysplasia) should continue to have Pap tests for 20 years after treatment or until age 65, whichever is longer. If you have had your uterus and cervix removed (total hysterectomy), and you have not been diagnosed with cervical cancer or precancer (high grade cervical neoplasia), you do not need cervical cancer screening. CHOLESTEROL SCREENING Cholesterol screening should begin at: Age 45 for women with no known risk factors for coronary heart disease Age 20 for women with known risk factors for coronary heart disease Repeat cholesterol screening should take place: Every 5 years for women with normal cholesterol levels More often if changes occur in lifestyle (including weight gain and diet) More often if you have diabetes, heart disease, kidney problems, or certain other conditions DIABETES SCREENING You should be screened for diabetes starting at age 35 and then repeated every 3 years if you have no risk factors for diabetes. Screening may need to start earlier and be repeated more often if you have other risk factors for diabetes, such as: You have a first degree relative with diabetes. You are overweight or have obesity. You have high blood pressure, prediabetes, or a history of heart disease. Screening for diabetes should be done if you are planning to become and you are overweight and have other risk factors such as high blood pressure. DENTAL EXAM Go to the dentist once or twice every year for an exam and cleaning. Your dentist will evaluate if you need more frequent visits. EYE EXAM Have an eye exam every 5 to 10 years before age 40. If you have vision problems, have an eye exam every 2 years or more often if recommended by your provider. You should have an eye exam that includes an examination of your retina (back of your eye) at least every year if you have diabetes. IMMUNIZATIONS Commonly needed vaccines include: Flu shot: get one every year. COVID-19 vaccine: ask your provider what is best for you. Tetanus-diphtheria and acellular pertussis (Tdap) vaccine: have one at or after age 19 as one of your tetanus-diphtheria vaccines if you did not receive it as an adolescent. Tetanus-diphtheria: have a booster (or Tdap) every 10 years. Varicella vaccine: receive 2 doses if you never had chickenpox or the varicella vaccine. Hepatitis B vaccine: receive 2, 3, or 4 doses, depending on your exact circumstances. Measles, mumps, and rubella (MMR) vaccine: receive 1 to 2 doses if you are not already immune to MMR. Your provider can tell you if you are immune. Ask your provider about the human papillomavirus (HPV) vaccine if: You have not received the HPV vaccine in the past You have not completed the full vaccine series (you should catch up on this shot) Ask your provider if you should receive other immunizations if you have certain health problems that increase your risk for some diseases such as pneumonia. INFECTIOUS DISEASE SCREENING Women who are sexually active should be screened for chlamydia and gonorrhea up until age 25. Women 25 years and older should be screened for chlamydia and gonorrhea if at high risk. Screening for hepatitis C: All adults ages 18 to 79 should get a one-time test for hepatitis C. people should be screened at every . Screening for human immunodeficiency virus (HIV): All people ages 15 to 65 should get a one-time test for HIV. Depending on your lifestyle and medical history, you may also need to be screened for infections such as syphilis and HIV, as well as other infections. PHYSICAL EXAM All adults should visit their provider from time to time, even if they are healthy. The purpose of these visits is to: Screen for disease Assess your risk of future medical problems Encourage a healthy lifestyle Update your vaccinations and other preventive care services Maintain a relationship with a provider in case of an illness Your height, weight, and BMI should be checked at every exam. During your exam, your provider may ask you about: Depression and anxiety Diet and exercise Alcohol and tobacco use Safety issues, such as using seat belts, smoke detectors, and intimate partner violence Your medicines and risk for interactions SKIN SELF-EXAM Your provider may check your skin for signs of skin cancer, especially if you're at high risk, such as if you: Have had skin cancer before Have close relatives with skin cancer Have a weakened immune system OTHER SCREENING Talk with your provider about colon cancer screening if you have a strong family history of colon cancer or polyps, or if you have had inflammatory bowel disease or polyps yourself. Routine bone density screening of women under 40 is not recommended.
[2024-07-22 12:03] VITALS: BP 118/68; PULSE 97; RESP 12; TEMP 36.4; O2SAT 99; BMI 32.8
--- OUTSIDE RECORDS SUMMARY | 2024-07-22 14:13 | XMS_ITS | Clinical Summary ---
Author Organization [facility] ity Address [address] [place] [address] Care Team Providers Care Steam Clean Machine Operator Name Role Phone Unavailable Primary Care Provider Unavailabl e Social History Tobacco Use Types Packs/Day Years Used Date Smoking Tobacco: Never Assessed Comments Unknown Sex and Gender Information Value Date Recorded Sex Assigned at Not on file Legal Sex Female 6:16 AM EST Gender Identity Not on file Sexual Orientation Not on file Plan of Treatment Health Maintenance Due Date Last Done Comments Gonorrhea/Chlamydia Screening 2003 Varicella Vaccines (1 of 2 - 13+ 2-dose series) 11/17/2016 HPV Vaccines (1 - 3-dose series) 11/17/2018 Meningococcal B Vaccine (1 o f 2 - Standard) 2019 Annual Well Child Visit (3-2 1 years old) 02/27/2022 Depression Screening 02/27/2022 HIV Screening 02/27/2022 Hepatitis C Screening 02/27/2022 Social Influencers of Health Screening 02/27/2022 DTaP,Tdap,and Td Vaccines (1 - Tdap) 11/17/2022 Hepatitis B Vaccines (1 of 3 - 19+ 3-dose series) 11/17/2022 COVID-19 Vaccine ( - 2023-2 5 season) 2023 Influenza Vaccine (Season Ended) 2024 HIB Vaccines Aged Out No longer eligi ble based on patient's age to complete this topic Hepatitis A Vaccines Aged Out No long er eligible based on patient's age to complete this topic IPV Vaccines Aged Out No longer eligi ble based on patient's age to complete this topic MMR Vaccines Aged Out No longer eligi ble based on patient's age to complete this topic Meningococcal ACWY Vaccine Aged Out N o longer eligible based on patient's age to complete this topic Pneumococcal Vaccine: Pediat rics (0 to 5 Years) and At-Risk Patients (6 to 64 Years) Aged Out No longer eligible b ased on patient's age to complete this topic RSV Immunization Patients Un bob 20 months Aged Out No longer eligible b ased on patient's age to complete this topic
--- OUTSIDE RECORDS SUMMARY | 2024-07-22 14:13 | XMS_ITS ---
Author Name [facility] Organization Unknown History of Medication Use Medication Directions Dispensed Refills Start Date End Date Stat us dicyclomine (BENTYL) 10 MG capsule TAKE 1 CAPSULE BY MOUTH 3 TIMES DAILY BEFORE MEALS 04/10/2020 active FLUoxetine (PROZAC) 10 MG tablet Take by mouth active melatonin 5 mg tablet Take by mouth active Encounters Encounter Type Encounter Reason Primary Diagnosis Location Date Ambulatory [facility] 08/06/2021 Care Team Organization Name Specialty Phone Email Start Date End Da te [facility] Chrissie Bocanegra Primary Care 08/07/2021 11/13/19 24
--- OUTSIDE RECORDS SUMMARY | 2024-07-22 14:13 | XMS_ITS | Clinical Summary ---
Author Organization [facility] 's Address [address] [place] [address] Care Team Providers Care Double End Chucking Machine Operator Name Role Phone Chrissie Bocanegra MD Primary Care Provider [phone] Source Comments Please note that some or all of the patient's information could have additional privacy protections. State laws allow health care providers to render certain types of treatment to minors without parental consent. Please do not assume that this information can be shared solely by obtaining just the consent of the patient's parent/guardian. Please determine if all or part of the patient's care was rendered without parent/guardian involvement. And, if so, obtain the minor's consent prior to disclosure.[facility] Allergies No known active allergies Medications FLUoxetine (PROZAC) 10 MG tablet Take by mouth Active melatonin 5 mg tablet Take by mouth Active hydrOXYzine (ATARAX) 10 MG tablet Take 10 mg by mouth daily Active dicyclomine (BENTYL) 10 MG capsuleIndicatio ns:Generalized abdominal pain,Diarrhea, unspecified type TAKE 1 CAPSULE BY MOUTH 3 TIMES DAILY BEFORE MEALS 90 capsule 1 04/10/2020 Active omeprazole (PRILOSEC) 40 MG capsuleIndicatio ns:Generalized abdominal pain,Heartburn TAKE 1 CAPSULE BY MOUTH EVERY DAY 30 capsule 1 04/10/2020 Active Family History Medical History Relation Name Comments No Known Problems Brother No Known Problems Father No Known Problems Mother No Known Problems Sister Relation Name Status Comments Brother Father Mother Sister Social History Tobacco Use Types Packs/Day Years Used Date Smoking Tobacco: Never Smokeless Tobacco: Never Other Needs Answer Date Recorded Anything else about your child you'd like help w ith? Not on file 12/09/2022 Share good news about positive changes: Not on f ile 12/09/2022 Comments No Sex and Gender Information Value Date Recorded Sex Assigned at Not on file Legal Sex Female 1:33 PM EDT Gender Identity Not on file Sexual Orientation Not on file Last Filed Vital Signs Vital Sign Reading Time Taken Comments Blood Pressure 119/74 02/18/2020 9:17 AM EST Pulse - - Temperature - - Respiratory Rate - - Oxygen Saturation - - Inhaled Oxygen Concentration - - Weight 95.5 kg (210 lb 8.6 oz) 02/18/2020 9:17 A M EST Height 165.2 cm (5' 5.04 ) 02/18/2020 9:17 AM ES T Body Mass Index 34.99 02/18/2020 9:17 AM EST Plan of Treatment Health Maintenance Due Date Last Done Comments DTaP/TDAP/TD VACCINES (1 - Tdap) 11/17/2010 ADOLESCENT HIV SCREENING 11/17/2016 COVID-19 Vaccine (2023-2 5 season) 2023 INFLUENZA (#1) 2023 NIRSEVIMAB VACCINES UNDER 8 MONTHS Aged Out No longer eligible based on patient's age to complete this topic Insurance [employer] Care Teams Double End Chucking Machine Operator Relationship Specialty Start Date End Date Chrissie Bocanegra MD [address] [place] [address] PCP - General 01/11/19
--- OUTSIDE RECORDS SUMMARY | 2024-07-22 14:13 | XMS_ITS | Encounter Summary ---
Author Organization [facility] Address [address] [place] [address] Care Team Providers Care Certified Green Building Engineer Name Role Phone Chrissie Bocanegra MD Primary Care Provider [phone] Reason for Visit * Reason Comments Medication Refill Encounter Details Date Type Department Care Team (Late st Contact Info) Description 04/10/2020 Refill [facility] G[facility], [place] [address] [place] [address] Concetta Dennis MD [address] [place] [address] Generalized abdominal pain; Diarrhea, unspecified type; Heartburn Social History Tobacco Use Types Packs/Day Years Used Date Smoking Tobacco: Never Smokeless Tobacco: Never Comments No Sex and Gender Information Value Date Recorded Sex Assigned at Not on file Legal Sex Female 1:33 PM EDT Gender Identity Not on file Sexual Orientation Not on file documented as of this encounter Miscellaneous Notes * Telephone Encounter - Cindy Padilla RN - 04/10/2020 10:06 AM EST Last visit: 02/18/20 Next visit: canceled 03/31/20 and no showed 04/06/20 Weight: 95.5 kg Allergies: reviewed Current dose: Dicyclomine 10 mg po three times a day for abdominal pain Omeprazole 40 mg po once daily in morning empty stomach documented in this encounter Plan of Treatment Not on file documented as of this encounter Visit Diagnoses Diagnosis Generalized abdominal pain Abdominal pain, generalized Diarrhea, unspecified type Heartburn documented in this encounter Care Teams Certified Green Building Engineer Relationship Specialty Start Date End Date Chrissie Bocanegra MD [address] [place] [id number] PCP - General 01/11/19 documented as of this encounter
== END 2024-07-22 12:53 | disposition home or self-care (01) ==
LOC: HO.HMCFM 11:54
PROVIDERS: PCP Nurse Practitioner Family; Visit Provider Nurse Practitioner Family
DX: Z00.00 Encounter for general adult medical examination without abnormal findings (principal); F41.1 Generalized anxiety disorder; Z68.32 Body mass index [BMI] 32.0-32.9, adult; E66.9 Obesity, unspecified; L73.2 Hidradenitis suppurativa; R73.01 Impaired fasting glucose; F33.0 Major depressive disorder, recurrent, mild; J45.20 Mild intermittent asthma, uncomplicated; Z23 Encounter for immunization

== ENCOUNTER → 2024-07-22 11:53 | Outpatient (BNVA) | payer OTHER, SELFPAY | PROVIDERS: PCP Nurse Practitioner Family; Visit Provider Nurse Practitioner Family | DX: Z00.00 Encounter for general adult medical examination without abnormal findings (principal); Z23 Encounter for immunization; F41.1 Generalized anxiety disorder; L73.2 Hidradenitis suppurativa; R73.01 Impaired fasting glucose; F33.0 Major depressive disorder, recurrent, mild; J45.20 Mild intermittent asthma, uncomplicated; E66.9 Obesity, unspecified; Z68.32 Body mass index [BMI] 32.0-32.9, adult | CPT/HCPCS: 90471; 90472; 90656; 90715; 96127; 99395 ==

== ENCOUNTER 2024-09-10 15:23 | Outpatient (AMB) | payer OTHER, SELFPAY ==
--- NOTE | 2024-09-10 16:17 | MHC.PC.OV ---
Intake Visit Reasons: rash Allergies Seasonal Allergies Allergy (Intermediate, Verified 09/10/24 17:09) Sneezing, watery eye Medication List - Last Reconciled 09/10/24 by CHINO MaravillaP- albuterol sulfate 90 mcg/actuation 2 puffs inhalation Q6H PRN chlorhexidine gluconate 4% (Hibiclens) 1 appl topical DAILY 30 days doxycycline hyclate 50 mg PO DAILY Tobacco use date assessed: 07/22/24 Dental Screening Dental Screen Date: 07/22/24 HPI HPI Comments History of Present Illness Details 18-year-old female with HS, elevated fasting glucose, MDD, LAURIE, mild intermittent asthma History of Present Illness - The patient is a 18-year-old female presenting with a pruritic rash. Started off as 1 large pink macule and then expanded to the picture below. Affecting trunk and thighs - Rash onset last week, initially a few red bumps along the panty line. - Patient's mother attributed it to a possible heat rash. - Rash has expanded, causing generalized itching. - Location: Left lower abdomen and left thigh. - Absence of systemic symptoms. - Lotions provide temporary relief; no current medication. - No trial of antihistamines prior to the visit. Review of Systems - Dermatology: Reports rash and generalized pruritus. - Constitutional: Denies fever and generalized malaise. - Allergy/Immunology: Denies known medication allergies; reports seasonal allergies. See picture below Assessment and Plan 1. Pityriasis Rosea - Diagnosis discussed. - Topical steroid cream prescribed. - Oral antihistamine recommended. - Condition self-limiting. - Follow-up if symptoms persist or worsen. 2. Seasonal Allergies - No current medications. - Antihistamine beneficial for allergies and rash pruritus. Telehealth Attestation The medical discussion and decisions for this visit were conducted via telehealth. I confirm the accuracy of the documentation based on the information provided during the conversation. The patient has been explained that this is an interactive (audio/video) telehealth encounter and what that consists of. The patient understands and wishes to proceed. [employer] platform was used. Total time spent caring for the patient today was 15 minutes. This includes time spent before the visit reviewing the chart, time spent during the visit, and time spent after the visit on documentation, reviewing laboratory results, diagnostic imaging, medications, performing a medically necessary evaluation, counseling on diagnoses, care coordination, ordering appropriate tests, ordering appropriate medications, review of tests performed by other providers, reporting test results with the patient, communication with other healthcare providers. [facility] Medical History Hidradenitis axillaris Diarrhea Surgical History No pertinent past surgical history Family History Mother Diabetes Father No problems noted. Maternal Grandmother Diabetes Paternal Uncle Substance abuse Other Mental disorder Social History Household Members: Family Housing: Apartment Patient Tobacco Use Status: Never used Tobacco e-Cigarette/Vaping Use: Former Use service: No Current occupational status: employed and student Current occupation: [employer]) Current occupational exposures/hazards: No Cognitive needs: No Hearing needs: No Vision needs: No Questionnaire Thrive Questionnaire Date Thrive assessed: 07/22/24 LAURIE-7 AMB Questionnaire LAURIE-7 Date LAURIE - 7 assessed: 07/22/24 Source: Developed by Drs. Daniel Mcconnell, Pascale Gómez, James Cheatham and colleagues, with an educational moody from [employer] Physical exam (Primary Care) Tobacco/Smoking Status: Tobacco use Status Tobacco use date assessed 07/22/24 09/10/24 16:17 Patient Tobacco Use Status Never used Tobacco 09/10/24 16:17 e-Cigarette/Vaping Use Former Use 09/10/24 16:17 Thrive Assessment: Date of Thrive Assessment Date Thrive assessed 07/22/24 09/10/24 16:17 Telehealth Telehealth Telehealth Platform: [facility] Location of provider rendering services: practice address Location of patient: address on file Patient Identification confirmed using: Name, : Yes Telehealth method: voice only Patient verbally consented to treatment: Yes Patient verbally consented to billing insurance company: Yes Patient informed of any privacy concerns related to visit: Yes Minutes spent on Phone/Video with Pt.: 7 Results Reviewed Results Reviewed: Coding Level of Care Code Tele Est Pt Level 2 (90201) Complex EM visit Add On G2211 Diagnoses Pityriasis rosea L42 Assessment & Plan Assessment & Plan (1) Pityriasis rosea: Code(s): L42 - Pityriasis rosea Plan . Medications: New betamethasone dipropionate 0.05% 1 appl topical BID PRN 45 grams 1RF skin irritation cetirizine (Zyrtec) 10 mg PO DAILY PRN 90 tabs 0RF allergy symptoms
--- OUTSIDE RECORDS SUMMARY | 2024-09-10 17:54 | XMS_ITS | Clinical Summary ---
Author Organization [facility] ity Address [address] [place] [address] Care Team Providers Care Medical Office Technician Name Role Phone Unavailable Primary Care Provider [...]
== END 2024-09-10 17:15 | disposition home or self-care (01) ==
LOC: HO.HMCFM 15:23
PROVIDERS: PCP Nurse Practitioner Family; Visit Provider Nurse Practitioner Family
DX: L42 Pityriasis rosea (principal)

== ENCOUNTER → 2024-09-10 15:23 | Outpatient (BNVA) | payer OTHER, SELFPAY | PROVIDERS: PCP Nurse Practitioner Family; Visit Provider Nurse Practitioner Family | DX: Z13.89 Encounter for screening for other disorder (principal) ==

== ENCOUNTER 2025-01-26 01:52 | Emergency (ER) | payer OTHER, SELFPAY ==
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
[2025-01-26 01:55] VITALS: BP 144/80; PULSE 132; O2SAT 100; BMI 29.8
[2025-01-26 02:08] LABS: MANUAL DIFF FLAG NO
[2025-01-26 02:09] LABS: Hematocrit 38.7 % (37.0-47.0); Hemoglobin 13.1 g/dl (12.0-16.0); Imm Gran Abs Auto 0.06 X10*3/uL (0.00-0.03); Imm Gran Pct Auto 0.5 % (0.0-0.4); Lymphocytes Absolute Auto 2.2 X10*3/uL (1.2-4.9); Mean Corpuscular HGB Conc 33.9 g/dl (31.0-35.0); Mean Corpuscular Hemoglobin 30.1 pg (27.0-33.0); Mean Corpuscular Volume 89.0 fL (80.0-98.0); NRBC Abs Auto 0.000 X10*3/uL (0.0-0.012); NRBC Pct Auto 0.0 /100WBC (0.0-0.2); Platelet Count 373 X10*3/uL (160-400); Red Blood Count 4.35 X10*6/uL (4.20-5.50); White Blood Count 13.3 X10*3/uL (4.8-10.8)
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
[2025-01-26 02:24] LABS: Alanine Aminotransferase 21 U/L (0-31); Albumin Level 5.4 g/dL (3.5-5.0); Alkaline Phosphatase 84 U/L (39-117); Anion Gap 20 (12-20); Aspartate Amino Transferase 33 U/L (5-31); Blood Urea Nitrogen 9 mg/dL (9-16); Calcium 9.8 mg/dL (8.4-10.2); Carbon Dioxide 18 mmol/L (22-29); Chloride 109 mmol/L (96-108); Creatinine Clr Calc Pharmacy 130.9; Estimated Glomerular Filt Rate > 60; Potassium 3.5 mmol/L (3.3-5.1); Sodium 143 mmol/L (135-145); Total Protein 8.2 g/dL (6.5-8.0)
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
[2025-01-26 02:42] VITALS: BP 118/61; PULSE 114; RESP 16; TEMP 36.9; O2SAT 98
--- NOTE | 2025-01-26 02:45 | PC.NURSE ---
this RN was unable to scan th barcode prior to disposing of the syringe. Pt medicated per MAY.
[2025-01-26] MEDS: iohexoL 350 MG/ML 100 ML INFUS..BTL 85 ML IV (03:33)
--- OUTSIDE RECORDS SUMMARY | 2025-01-26 04:38 | XMS_ITS | Clinical Summary ---
Author Organization [facility] 's Address [address] [place] [address] Care Team Providers Care Science Instructor Name Role Phone Chrissie Bocanegra MD Primary Care Provider [phone] Source Comments Please note that some or [...] so, obtain the minor's consent prior to disclosure.[facility] Allergies No known active allergies Medications [...] SCREENING 11/17/2016 COVID-19 Vaccine (2023-2 5 season) 2024 INFLUENZA (#1) 2024 NIRSEVIMAB VACCINES UNDER 8 MONTHS Aged Out No longer eligible based on patient's age to complete this topic Insurance [employer] Care Teams Science Instructor Relationship Specialty Start Date End Date Chrissie Bocanegra MD [address] [place] [address] PCP - General 01/11/19
--- OUTSIDE RECORDS SUMMARY | 2025-01-26 04:39 | XMS_ITS | Clinical Summary ---
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 Role Phone Unavailable Primary Care Provider [...] Date Last Done Comments Gonorrhea/Chlamydia Screening 2003 HPV Vaccines (1 - 3-dose series) 11/17/2018 Meningococcal B Vaccine (1 o f 2 - Standard) 2019 Annual Well Child Visit (3-2 1 years old) 02/27/2022 HIV Screening 02/27/2022 Hepatitis C Screening 02/27/2022 Social Influencers of Health Screening 02/27/2022 DTaP,Tdap,and Td Vaccines (1 - Tdap) 11/17/2022 Hepatitis B Vaccines (1 of 3 - 19+ 3-dose series) 11/17/2022 Depression Screening 03/27/2024 Cervical Cancer Screening: P ap Smear 11/17/2024 COVID-19 Vaccine (1 - 2023-2 5 season) 2024 Influenza Vaccine (#1) 2024 RSV Immunization Adult Patie nts (1 - 1-dose 75+ series) 11/17/2078 HIB Vaccines Aged Out No longer eligi [...] 5 Years) and At-Risk Patients (6 to 49 Years) Aged Out No longer eligible b ased on patient's age to complete this topic RSV Immunization Patients Un bob 20 months Aged Out No longer eligible b ased on patient's age to complete this topic Varicella Vaccines Aged Out No longer eligible based on patient's age to complete this topic
--- OUTSIDE RECORDS SUMMARY | 2025-01-26 04:39 | XMS_ITS | Clinical Summary ---
Author Organization [facility] Address [address] [place] [address] Phone Care Team Providers Care Social Services Manager Name Role Phone Paulette Benavidez DO Primary Care Provid er Allergies No known active allergies Medications FLUoxetine (PROZAC) 10 MG tablet Take 5 mg by mouth daily. Active melatonin 5 mg Tab Take 10 mg by mouth nightly at bedtime. Active Active Problems Problem Noted Date Diagnosed Date Epigastric pain 03/04/2019 Right upper quadrant abdominal pain 03/04/2019 Diarrhea 03/04/2019 Social History Tobacco Use Types Packs/Day Years Used Date Smoking Tobacco: Never Assessed Education Answer Date Recorded Are you interested in more education? Not on malou e 07/22/2022 Are you concerned about learning? Not on file 07/22/2022 No 07/22/2022 No 07/22/2022 Digital Access Answer Date Recorded No 08/20/2022 No 08/20/2022 No 08/20/2022 Reliable internet access at home? Not on file 08/20/2022 Device with a working camera? Not on file Comments Unknown Sex and Gender Information Value Date Recorded Sex Assigned at Not on file Legal Sex Female 10:31 AM EDT Gender Identity Not on file Sexual Orientation Not on file Last Filed Vital Signs Vital Sign Reading Time Taken Comments Blood Pressure 112/62 03/04/2019 9:43 AM EST Pulse 88 03/04/2019 9:43 AM EST Temperature - - Respiratory Rate 16 03/04/2019 9:43 AM EST Oxygen Saturation - - Inhaled Oxygen Concentration - - Weight 84.6 kg (186 lb 9.6 oz) 03/04/2019 9:43 A M EST Height 166 cm (5' 5.35 ) 03/04/2019 9:43 AM EST Body Mass Index 30.72 03/04/2019 9:43 AM EST Plan of Treatment Health Maintenance Due Date Last Done Comments MMR VACCINES (1 of 1 - Standard series) 11/17/2004 COMBINED DTaP,Tdap,Td (2 - T d or Tdap) 01/01/2015 12/04/2014 HEPATITIS A VACCINES (2 of 2 - 2-dose series) 06/04/2015 12/04/2014 DEPRESSION SCREENING 2015 SMOKING Hx and SMOKELESS TOBACCO SCREENING 11/17/2016 CHLAMYDIA SCREENING 2019 MENINGOCOCCAL VACCINES (B) ( 1 of 2 - Standard) 2019 ADOLESCENT UNIVERSAL LIPID SCREENING 11/17/2020 HEPATITIS C SCREENING 11/17/2021 HIV ONE-TIME SCREENING (18-6 5 YEARS) 11/17/2021 INFLUENZA VACCINE (#1) 2024 , 04/06/2016 PAP SMEAR 11/17/2024 COVID-19 VACCINE (3 - 2024-2 6 season) 2024 09/04/2020, 08/14/2020 Adult Td,Tdap Booster 12/04/2024 12/04/2014 HPV VACCINES Completed 08/24/2017, 04/06/2016 MENINGOCOCCAL VACCINES (ACWY) Completed , 12/04/2014 HIB VACCINES Aged Out No longer eligi ble based on patient's age to complete this topic PNEUMOCOCCAL VACCINES (0-49 years) Aged Out No longer eligible b ased on patient's age to complete this topic Medical Devices Not on file [place] [address] [place] [address] [place] [address] [place] [address] [place] [place] [address] [place] [address] [place] [address] [address] [place] [address] [employer] Care Teams Social Services Manager Relationship Specialty Start Date End Date Paulette Benavidez DO [address] [place] [address] [address] [place] [address] PCP - General Pediatrics 01/30/19 Additional Source Comments The information contained in this document represents components of the legal health record. It is not the complete legal health record.[facility]
--- OUTSIDE RECORDS SUMMARY | 2025-01-26 04:39 | XMS_ITS | Encounter Summary ---
Author Organization [facility] Address [address] [place] [address] Care Team Providers Care Recycling Manager Name Role Phone Chrissie Bocanegra MD Primary Care Provider [phone] Reason for Visit * Reason Comments Medication Refill Encounter Details Date Type Department Care Team (Late st Contact Info) Description 04/10/2020 Refill [facility], [address] [place] [address] Concetta Dennis MD [address] [place] [id number] Generalized abdominal pain; Diarrhea, unspecified type; Heartburn [...] Heartburn documented in this encounter Care Teams Recycling Manager Relationship Specialty Start Date End Date Chrissie Bocanegra MD [address] [place] [id number] PCP - General 01/11/19 documented as of this encounter
--- OUTSIDE RECORDS SUMMARY | 2025-01-26 04:39 | XMS_ITS ---
Author Name [facility] Organization Unknown History of Medication Use Medication Directions Dispensed Refills Start Date End Date Stat us dicyclomine (BENTYL) 10 MG capsule TAKE 1 CAPSULE BY MOUTH 3 TIMES DAILY BEFORE MEALS 04/10/2020 active omeprazole (PRILOSEC) 40 MG capsule TAKE 1 CAPSULE BY MOUTH EVERY DAY 04/10/2020 active FLUoxetine (PROZAC) 10 MG tablet Take by mouth active hydrOXYzine (ATARAX) 10 MG tablet Take 10 mg by mouth daily active melatonin 5 mg tablet Take by mouth active Encounters Encounter Type Encounter Reason Primary Diagnosis Location Date Ambulatory [facility] 08/06/2021 Care Team Organization Name Specialty Phone Email Start Date End [facility] Chrissie Bocanegra Primary Care 08/07/2021 11/13/19 24
[2025-01-26 04:43] VITALS: BP 116/75; PULSE 88; RESP 16; TEMP 36.9; O2SAT 100
--- NOTE | 2025-01-26 05:06 | PC.NURSE ---
pt medicated per MAY for nausea.
[2025-01-26] MEDS: Lidocaine HCl Viscous 2 % 15 ML SOLUTION MUCOUS MEM (05:56)
[2025-01-26] MEDS: Magnesium Hydrox/Alum Hydrox 30 ML ORAL.SUSP PO (05:56)
[2025-01-26] MEDS: Lidocaine 4 % Patch ADH..PATCH 1 PATCH TRANSDERMA (06:12)
--- NOTE | 2025-01-26 06:15 | PC.NURSE ---
Lidocaine patch placed on L hamstring. pt tolerated well, some pain but she was able to lift leg and allow placement of patch.
[2025-01-26] MEDS: oxyCODONE HCl Immed Release 5 MG TABLET PO (06:57)
[2025-01-26 07:35] VITALS: BP 116/75; PULSE 88; RESP 16; TEMP 36.9; O2SAT 100
== END 2025-01-26 08:07 | disposition home or self-care (01) ==
PROVIDERS: Emergency Provider Student in an Organized Health Care Education/Training Program
DX: S89.92XA Unspecified injury of left lower leg, initial encounter (principal); R11.0 Nausea; M25.562 Pain in left knee; R00.0 Tachycardia, unspecified; R10.22 Pelvic and perineal pain left side; R51.9 Headache, unspecified; M54.2 Cervicalgia; R07.89 Other chest pain; X58.XXXA Exposure to other specified factors, initial encounter; V43.52XA Car driver injured in collision with other type car in traffic accident, initial encounter; Y93.9 Activity, unspecified; Y92.410 Unspecified street and highway as the place of occurrence of the external cause; Y99.8 Other external cause status; Z79.899 Other long term (current) drug therapy; Z51.81 Encounter for therapeutic drug level monitoring
CPT/HCPCS: 36415; 70450; 71260; 72125; 73560; 74177; 80053; 80307; 84702; 85025; 93005; 96361; 96374; 96375; 99285; J1171; J1308; J2270; J2405; J2765; Q9967

== ENCOUNTER → 2025-01-26 02:06 | Outpatient (BNV) | payer SELFPAY | PROVIDERS: Emergency Provider Student in an Organized Health Care Education/Training Program; Visit Provider Internal Medicine | DX: R00.0 Tachycardia, unspecified (principal) | CPT/HCPCS: 93010 ==

== ENCOUNTER → 2025-01-26 02:11 | Outpatient (BNV) | payer OTHER, SELFPAY | PROVIDERS: Emergency Provider Student in an Organized Health Care Education/Training Program; Visit Provider Radiology Diagnostic Radiology | DX: T14.90XA Injury, unspecified, initial encounter (principal); M25.562 Pain in left knee; V89.2XXA Person injured in unspecified motor-vehicle accident, traffic, initial encounter | CPT/HCPCS: 70450; 71260; 72125; 73560; 74177 ==